=== PATIENT | female | born 2000 | race Caucasian/White ===

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

== ENCOUNTER 2021-08-24 05:30 | Inpatient (IN) | payer OTHER ==
[~2021-08-24] VITALS: Ht 167.6 cm; Wt 89.4 kg
[~2021-08-24 05:30] MED LIST: ASPIR 8181 MG PO; PRENATAL VITAM1 EAC3 PO; ZANTAC 7575 MG PO
[2021-08-24 07:43] LABS: HEMOGLOBIN 10.7 gm/dl (12.3-15.3); RED BLOOD COUNT 3.93 M/UL (4.00-5.10)
[2021-08-24] MEDS ORDERED: IBU600 MG PO (15:01)
[2021-08-24] MEDS ORDERED: COLACE100 MG PO (15:01)
[2021-08-25 06:22] LABS: HEMOGLOBIN 10.2 gm/dl (12.3-15.3)
== END 2021-08-25 16:56 | disposition home or self-care (01) | DRG 807 ==
LOC: OB 05:30
PROVIDERS: ADMIT Obstetrics & Gynecology
PROC: 10E0XZZ Delivery of Products of Conception, External Approach (ICD-10-PCS; principal; 2021-08-24)
PROC: 3E033VJ Introduction of Other Hormone into Peripheral Vein, Percutaneous Approach (ICD-10-PCS; 2021-08-24)
PROC: 0HQ9XZZ Repair Perineum Skin, External Approach (ICD-10-PCS; 2021-08-24)
PROC: 10907ZC Drainage of Amniotic Fluid, Therapeutic from Products of Conception, Via Natural or Artificial Opening (ICD-10-PCS; 2021-08-24)
PROC: 0UQGXZZ Repair Vagina, External Approach (ICD-10-PCS; 2021-08-24)
PROC: 10H07YZ Insertion of Other Device into Products of Conception, Via Natural or Artificial Opening (ICD-10-PCS; 2021-08-24)
PROC: 4A1H7CZ Monitoring of Products of Conception, Cardiac Rate, Via Natural or Artificial Opening (ICD-10-PCS; 2021-08-24)
PROC: 10H073Z Insertion of Monitoring Electrode into Products of Conception, Via Natural or Artificial Opening (ICD-10-PCS; 2021-08-24)
DX: O99.52 Diseases of the respiratory system complicating childbirth (principal); Z37.0 Single live birth; O75.3 Other infection during labor; Z3A.39 39 weeks gestation of pregnancy; O70.0 First degree perineal laceration during delivery; Z83.3 Family history of diabetes mellitus; Z20.822 Contact with and (suspected) exposure to COVID-19; Z82.49 Family history of ischemic heart disease and other diseases of the circulatory system; Z80.3 Family history of malignant neoplasm of breast; Z90.89 Acquired absence of other organs; O99.334 Smoking (tobacco) complicating childbirth; J45.909 Unspecified asthma, uncomplicated; Z87.891 Personal history of nicotine dependence; Z84.2 Family history of other diseases of the genitourinary system; Z83.42 Family history of familial hypercholesterolemia; Z84.89 Family history of other specified conditions; Z28.21 Immunization not carried out because of patient refusal
CPT/HCPCS: 36415; 81001; 82800; 85014; 85018; 85025; 90715; J2590; J7120